=== PATIENT | female | born 1995 | race African-American/Black ===

== ENCOUNTER 2017-03-11 10:14 | Outpatient (CLI) | payer MEDICAID ==
[2017-03-11 11:25] LABS: APPEARANCE,URINE SLIGHTLY-CLOUDY; BILIRUBIN,URINE NEGATIVE (NEGATIVE); GLUCOSE, URINE NEGATIVE (NEGATIVE); KETONES,URINE NEGATIVE (NEGATIVE); LEUKOCYTE ESTERASE,URINE MODERATE (NEGATIVE); NITRITE,URINE NEGATIVE (NEGATIVE); PROTEIN,URINE NEGATIVE (NEGATIVE); URINE SPECIFIC GRAVITY 1.019; UROBILINOGEN,URINE NEGATIVE mg/dL (<2.0)
[2017-03-11 11:54] LABS: URINE BARBITURATES SCREEN NEGATIVE; URINE METHADONE SCREEN NEGATIVE; URINE OPIATES LOW NEGATIVE; URINE PHENCYCLIDINE SCREEN NEGATIVE
--- NOTE | 2017-03-11 12:27 | Non Stress Test Report ---
Non Stress Test Datetime Report Generated by CPN: 03/11/2017 12:27 DEMOGRAPHIC EGA NST: 38.5 INDICATION Indication for Study: Ordered by Provider Indication for Study (NST) Other: LC MONITORING Monitor Explained: Monitor Explained; Test Explained; Patient Verbalized Understanding Time on Monitor: 03/11/2017 10:38 Time off Monitor: 03/11/2017 12:20 NST Duration: 102 NST INTERVENTIONS NST Interventions: PO Hydration; Reposition Patient Physician Notified NST: Dr. Jc BABY A: [id number] BABY A Movement : Present Contraction Frequency : irregular FHR Baseline : 30-40 Accelerations : 15X15 Decelerations : None Variability : Moderate 6-25bpm NST Review: Meets Criteria for Reactive NST NST Review and Verified By : Nanette Bill RNC NST Results: Reactive NST REPORT Report Trigger: Send Report
== END 2017-03-11 12:30 | disposition home or self-care (01) ==
LOC: LC 10:14
PROVIDERS: ATTEND Obstetrics & Gynecology
PROC: 4A1HXCZ Monitoring of Products of Conception, Cardiac Rate, External Approach (ICD-10-PCS; principal; 2017-03-11)
DX: O47.1 False labor at or after 37 completed weeks of gestation (principal); Z3A.38 38 weeks gestation of pregnancy
CPT/HCPCS: 59025; 80307; 81001

== ENCOUNTER 2017-03-17 10:55 | Outpatient (CLI) | payer MEDICAID ==
[2017-03-17 11:49] LABS: APPEARANCE,URINE CLOUDY; BILIRUBIN,URINE NEGATIVE (NEGATIVE); GLUCOSE, URINE NEGATIVE (NEGATIVE); KETONES,URINE NEGATIVE (NEGATIVE); LEUKOCYTE ESTERASE,URINE LARGE (NEGATIVE); NITRITE,URINE NEGATIVE (NEGATIVE); PROTEIN,URINE 30 mg/dL (NEGATIVE); UROBILINOGEN,URINE NEGATIVE mg/dL (<2.0)
[2017-03-17 12:18] LABS: URINE BARBITURATES SCREEN NEGATIVE; URINE METHADONE SCREEN NEGATIVE; URINE OPIATES LOW NEGATIVE; URINE PHENCYCLIDINE SCREEN NEGATIVE
== END 2017-03-17 13:20 | disposition home or self-care (01) ==
LOC: LC 10:55
PROVIDERS: ATTEND Obstetrics & Gynecology
PROC: 4A1HXCZ Monitoring of Products of Conception, Cardiac Rate, External Approach (ICD-10-PCS; principal; 2017-03-17)
DX: O47.1 False labor at or after 37 completed weeks of gestation (principal); Z3A.39 39 weeks gestation of pregnancy
CPT/HCPCS: 59025; 80307; 81005

== ENCOUNTER 2017-03-26 10:45 | Inpatient (IN) | payer MEDICAID ==
--- NOTE | 2017-03-26 11:01 | Non Stress Test Report ---
Non Stress Test Datetime Report Generated by CPN: 03/26/2017 11:01 DEMOGRAPHIC EGA NST: 39.4 INDICATION Indication for Study: Other Indication for Study (NST) Other: lc VITAL SIGNS Temperature - NST: 98.5 Pulse - NST: 87 RESP - NST: 18 NBPSYS NST: 130 NBPDIA NST: 76 MONITORING Monitor Explained: Monitor Explained; Test Explained; Patient Verbalized Understanding Time on Monitor: 03/17/2017 11:15 Time off Monitor: 03/17/2017 11:45 NST Duration: 30 NST INTERVENTIONS NST Interventions: PO Hydration; Reposition Patient BABY A: [id number] BABY A Movement : Present Contraction Frequency : 4-7 FHR Baseline : 135 Accelerations : 15X15 Decelerations : None Variability : Moderate 6-25bpm NST Review: Meets Criteria for Reactive NST NST Review and Verified By : Nanette Khan RNC NST Results: Reactive NST REPORT Report Trigger: Send Report
[2017-03-26] MEDS ORDERED: LIDOCAINE 1% INJ-PF (10 MG/ML) 30 ML SDV ONE (11:49)
[2017-03-26] MEDS ORDERED: OXYTOCIN/NORMAL SALINE 20 UNIT/1,000 ML RTUINJ ONE (11:49)
[2017-03-26] MEDS ORDERED: PENICILLIN G-K 5 MILLION UNIT VIAL ONE ×2 (11:49→16:01)
[2017-03-26] MEDS ORDERED: MISOPROSTOL 0.2 MG TABLET ONE (11:49)
[2017-03-26 11:53] LABS: AMNISURE (ROM) POSITIVE (NEGATIVE)
[2017-03-26 11:54] LABS: APPEARANCE,URINE CLOUDY; BILIRUBIN,URINE NEGATIVE (NEGATIVE); GLUCOSE, URINE NEGATIVE (NEGATIVE); KETONES,URINE NEGATIVE (NEGATIVE); LEUKOCYTE ESTERASE,URINE SMALL (NEGATIVE); NITRITE,URINE NEGATIVE (NEGATIVE); PROTEIN,URINE 30 mg/dL (NEGATIVE); UROBILINOGEN,URINE NEGATIVE mg/dL (<2.0)
[2017-03-26 12:11] LABS: URINE BARBITURATES SCREEN NEGATIVE; URINE METHADONE SCREEN NEGATIVE; URINE OPIATES LOW NEGATIVE; URINE PHENCYCLIDINE SCREEN NEGATIVE
[2017-03-26 12:25] LABS: ABSOLUTE EOSINOPHILS # (AUTO) 0.1 10^3/uL (0.0-0.6); ABSOLUTE LYMPHOCYTES (AUTO) 2.2 10^3/uL (0.5-4.7); ABSOLUTE MONOCYTES (AUTO) 0.5 10^3/uL (0.1-1.4); ABSOLUTE NEUT (AUTO) 5.7 10^3/uL (1.7-8.2); BASOPHILS % (AUTO) 0.3 % (0-2); EOSINOPHILS % (AUTO) 0.6 % (0-6); HEMATOCRIT 35.3 % (36.0-47.0); HEMOGLOBIN 11.7 g/dL (12.0-15.5); HGB HCT DIFFERENCE -0.2; LYMPHOCYTES % (AUTO) 25.8 % (13-45); MEAN CORPUSCULAR HEMOGLOBIN 26.2 pg (27.0-33.4); MEAN CORPUSCULAR VOLUME 79 fl (80-97); MONOCYTES % (AUTO) 6.2 % (3-13); RED BLOOD COUNT 4.45 10^6/uL (3.72-5.28); RED CELL DISTRIBUTION WIDTH 14.6 % (11.5-14.0); SEGMENTED NEUTROPHILS % (AUTO) 67.1 % (42-78); WHITE BLOOD COUNT 8.5 10^3/uL (4.0-10.5)
[2017-03-26] MEDS ORDERED: OXYTOCIN/NORMAL SALINE 1,000 ML IV PRN ×2 (12:55→20:15)
[2017-03-26] MEDS ORDERED: RINGERS SOLUTION,LACTATED 300 ML IV ONE (12:55)
[2017-03-26] MEDS ORDERED: RINGERS SOLUTION,LACTATED 1,000 ML IV PRN (12:55)
[2017-03-26] MEDS ORDERED: NALBUPHINE HCL INJ 10 MG/1 ML AMPULE IV ONE (15:10)
[2017-03-26] MEDS ORDERED: NALBUPHINE HCL INJ 10 MG/1 ML AMPULE ONE (15:15)
--- NOTE | 2017-03-26 17:06 | L&D Progress Notes ---
PROGRESS NOTES Datetime Report Generated by CPN: 03/26/2017 17:05 PROGRESS NOTE Impression: Reassuring Heart Rate Procedures: Sterile Vag Exam Plan: Continue Present Management Plan Other: pt may havev epidural Vital Signs : Reviewed; Within Normal Limits Comment: pt uncomfortable, desires epidural Pitocin @ 18 mu s/p dose #2 pcn Pt may have epidural VAGINAL EXAM Dilatation: 5 Dilatation: 3 Effacement: 70 Effacement: 80 Station: -2 Contractions: 2-3 Contractions: irregular MEMBRANES Membranes: Ruptured Membranes: Ruptured Amniotic Fluid Color: Clear Amniotic Fluid Color: Clear FETUS A FHR - Baseline: 125 Monitoring: External US Variability: Moderate 6-25bpm Accelerations: Absent FHR Category: Category I Presentation: Vertex SIGNATURE SIGNATURE: [id number] SIGNATURE: [id number] SIGNATURE: [id number] Assignment: Velma Munguia MD Signature: with User ID: [email or web address] : with User ID: [email or web address]
[2017-03-26] MEDS ORDERED: PHENYLEPHRINE HCL INJ/PF 10 MG/1 ML SDV ONE (17:17)
[2017-03-26] MEDS ORDERED: FENTANYL CITRATE INJ/PF 100 MCG/2 ML AMPUL ONE (17:17)
[2017-03-26] MEDS ORDERED: BUPIVACAINE HCL 0.25 % INJ/PF (2.5 MG/1 ML) 30 ML VIAL ONE (17:17)
[2017-03-26] MEDS ORDERED: FENTANYL/BUPIVACAINE/NS/PF 200 MCG/100 ML RTUINJ EPI ONE (17:17)
[2017-03-26] MEDS ORDERED: EPHEDRINE SULFATE INJ 50 MG/1 ML AMPULE ONE (17:17)
[2017-03-26] MEDS ORDERED: DIPHENHYDRAMINE HCL 25 MG CAPSULE PO PRN (20:15)
[2017-03-26] MEDS ORDERED: PROMETHAZINE HCL 25 MG SUPP.RECT PR PRN (20:15)
[2017-03-26] MEDS ORDERED: PSEUDOEPHEDRINE HCL 30 MG TABLET PO PRN (20:15)
[2017-03-26] MEDS ORDERED: GLYCERIN/WITCH HAZEL LEAF 1 EACH MED..PAD TP PRN (20:15)
[2017-03-26] MEDS ORDERED: NA PHOS,M-B/NA PHOS,DI-BA (ADULT) 133 ML ENEMA PR PRN (20:15)
[2017-03-26] MEDS ORDERED: MEASLES,MUMPS&RUBELLA VACC/PF 0.5 ML VIAL SUBCUT PRN (20:15)
[2017-03-26] MEDS ORDERED: DIPH/PERTUSS(ACELL)/TETANUS VAC/PF 0.5 ML SYR (>=10YO) IM PRN (20:15)
[2017-03-26] MEDS ORDERED: DIBUCAINE 1% OINTMENT 28 GM TP PRN (20:15)
[2017-03-26] MEDS ORDERED: PROMETHAZINE HCL 25 MG TABLET PO PRN (20:15)
[2017-03-26] MEDS ORDERED: PROMETHAZINE HCL INJ 25 MG/1 ML VIAL IV PRN (20:15)
[2017-03-26] MEDS ORDERED: ACETAMINOPHEN WITH CODEINE #3 TABLET PO PRN ×2 (20:15)
[2017-03-26] MEDS ORDERED: MAGNESIUM HYDROXIDE SUSP 30 ML UDCUP PO PRN (20:15)
[2017-03-26] MEDS ORDERED: ZOLPIDEM TARTRATE 5 MG TABLET PO PRN (20:15)
[2017-03-26] MEDS ORDERED: ACETAMINOPHEN 650 MG SUPP.RECT PR PRN (20:15)
[2017-03-26] MEDS ORDERED: BENZOCAINE/MENTHOL AEROSOL SPRAY 56 ML TOP PRN (20:15)
[2017-03-26] MEDS ORDERED: IBUPROFEN 800 MG TABLET ONE (20:46)
--- NOTE | 2017-03-26 22:38 | Admission Physical ---
Datetime Report Generated by CPN: 03/26/2017 22:37 CURRENT ADMISSION Hx Assessment: The History has been Reviewed and is Current Chief Complaint: Uterine Contractions; Suspected Ruptured Membranes Indication for Induction: Not Applicable Admit Plan: Initiate Labor Augmentation Protocol ALLERGIES Medication Allergies: No Medication Allergies: No Known Allergies (03/26/2017) Medication Allergies: No Known Allergies (03/17/2017) Medication Allergies: No Known Allergies (06/25/2011) Latex: No Latex Allergies Food Allergies: pickles Environmental Allergies: no OBSTETRICAL HISTORY EDC: 03/20/2017 00:00 : 2 Para: 1 Term: 1 : 0 SAB: 0 IAB: 0 Ectopic: 0 Livin Cesareans: 1 VBACs: 0 Multiple Births: 0 Gestational Diabetes: No Rh Sensitization: No Incompetent Cervix: No MARIALUISA: No Infertility: No ART Treatment: No Uterine Anomaly: No IUGR: No Hx Previous C/S: No Macrosomia: No Hx Loss/Stillborn: No PIH: No Hx : No Placenta Previa/Abruption: No Depression/PP Depression: No PTL/PROM: No Post Hemorrhage: No Current Procedures: Ultrasound; NST Obstetrical History Comments: G1: 05/2011 G2: current SEE RECORDS Alcohol: No Marijuana : Yes Marijuana Frequency: Occasional Previous Treatment: None Marijuana Comments: positive during this , pt states she had a cookie that she didn't know had marijuana in it Cocaine: No Other Illicit Drugs: No Cigarettes: Never Smoker. 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 Surgery: No Heart Disease: No Hosp/Surgery: No Autoimmune Disorder: No Anesthetic Complications: No Kidney Disease: No Abnormal Pap Smear: No Neuro/Epilepsy: No Psychiatric Disorders: No Other Medical Diseases: No Hepatitis/Liver Disease: No Significant Family History: No Varicosities/Phlebitis: No Trauma/Violence : No Thyroid Dysfunction: No INFECTIOUS HISTORY Gonorrhea: No Genital Herpes: No Chlamydia: Yes Tuberculosis: No Syphilis: No Hepatitis: No HIV/AIDS Exposure: No Rash or Viral Illness: No HPV: No PHYSICAL EXAM General: Normal HEENT: Normal Neurologic: Normal Thyroid: Normal Heart: Normal Lungs: Normal Breast: Normal Back: Normal Abdomen: Normal Genitourinary Exam: Normal Extremities: Normal DTRs: Normal Pelvic Type: Adequate Physical Exam Comments: pelvis proven to 7 lbs 7 oz VAGINAL EXAM Dilatation: 5 Dilatation: 3 Effacement: 70 Effacement: 80 Station: -2 Contraction Comments: 2-3 Contraction Comments: irregular MEMBRANES Membranes: Ruptured Membranes: Ruptured Amniotic Fluid Color: Clear Amniotic Fluid Color: Clear FETUS A EGA: 40.6 Monitoring: External US FHR- Baseline: 140 Variability: Moderate 6-25bpm Accelerations: 15X15 Presentation: Vertex Admit Comment: SROM, 0300 clear, having irregular ctx, coping well now, but desires epidural. Late care, transfer from [facility] Admit to L _ D + CT at 36w, no CHARLES complete, pending GBS +, tx with PCN Pt may have epidural Pitocin for labor augmentation See record for complete medical/surgical/ hx. PLANS FOR LABOR AND DELIVERY Labor and Delivery: None Pain Management: Epidural Feeding Preference: Formula Benefit of Breast Feed Discussed: Yes Circumcision: No INFORMED CONSENT Assignment: Velma Munguia MD Signature: with User ID: [email or web address] : with User ID: [email or web address]
[2017-03-27] MEDS: IBUPROFEN 800 MG TABLET PO SCH ×4 (02:05→21:58)
[2017-03-27] MEDS: FAMOTIDINE 20 MG TABLET PO SCH ×3 (02:05→21:58)
[2017-03-27 08:37] LABS: HEMATOCRIT 34.3 % (36.0-47.0); HEMOGLOBIN 11.1 g/dL (12.0-15.5); MEAN CORPUSCULAR HGB CONC 32.4 g/dL (32.0-36.0); MEAN CORPUSCULAR VOLUME 80 fl (80-97); RED BLOOD COUNT 4.29 10^6/uL (3.72-5.28); RED CELL DISTRIBUTION WIDTH 14.7 % (11.5-14.0); WHITE BLOOD COUNT 11.2 10^3/uL (4.0-10.5)
[2017-03-27] MEDS: PRENATAL VITAMIN W-O CA NO5/FE FUMARATE/FA CAPSULE PO SCH (09:58)
[2017-03-27] MEDS: SENNOSIDES/DOCUSATE 8.6-50 MG 1 EACH TABLET PO SCH (09:58)
[2017-03-27] MEDS: FERROUS SULFATE 325 MG TABLET PO SCH ×2 (09:59→17:45)
[2017-03-27] MEDS: DOCUSATE SODIUM 100 MG CAPSULE PO SCH ×2 (09:59→17:45)
--- NOTE | 2017-03-27 13:09 | PDOC PROGRESS REPORT ---
Subjective-OB Subjective: Post Delivery Day: 22 year old. Denies any needs at this time s/p vaginal delivery pt sitting up bonding well with family ff@u-1 mild lochia denies clots anticipate d/c in AM Physical Exam (OB) Vital Signs: Temp Pulse Resp BP Pulse Ox 97.5 F 65 16 112/48 L 100 03/27/17 07:55 03/27/17 07:55 03/27/17 07:55 03/27/17 07:55 03/27/17 07:55 Intake & Output 03/26/17 03/27/17 03/28/17 06:59 06:59 06:59 Intake Total 400 Balance 400 Weight 141.2 kg - Lochia Lochia Amount: Small 10-25 ml Lochia Color: Rubra/Red - Abdomen Description: Soft Hernia Present: No Fundal Description: Firm Fundal Height: u/u - u/2 Objective-Diagnostic Laboratory: 03/27/17 07:25 03/26/17 03/27/17 11:52 07:25 WBC 11.2 H RBC 4.29 Hgb 11.1 L Hct 34.3 L MCV 80 MCH 26.0 L MCHC 32.4 RDW 14.7 H Plt Count 190 Blood Type B POSITIVE Antibody Screen NEGATIVE
[2017-03-28] MEDS: IBUPROFEN 800 MG TABLET PO SCH ×2 (05:37→13:03)
[2017-03-28 08:21] VITALS: BP 129/62
[2017-03-28] MEDS: FAMOTIDINE 20 MG TABLET PO SCH (09:19)
[2017-03-28] MEDS: FERROUS SULFATE 325 MG TABLET PO SCH (09:19)
[2017-03-28] MEDS: SENNOSIDES/DOCUSATE 8.6-50 MG 1 EACH TABLET PO SCH (09:20)
[2017-03-28] MEDS: PRENATAL VITAMIN W-O CA NO5/FE FUMARATE/FA CAPSULE PO SCH (09:21)
[2017-03-28] MEDS: DOCUSATE SODIUM 100 MG CAPSULE PO SCH (09:21)
--- NOTE | 2017-03-28 09:31 | PDOC PROGRESS REPORT ---
Subjective-OB Subjective: Post Delivery Day: 22 year old. Denies any needs at this time Doing well, no c/o, ready to go home, ambulating, scant lochia, diet taken well Physical Exam (OB) Vital Signs: Temp Pulse Resp BP Pulse Ox 98.3 F 70 15 129/62 H 100 03/28/17 07:26 03/28/17 07:26 03/28/17 07:26 03/28/17 07:26 03/28/17 07:26 Intake & Output 03/27/17 03/28/17 03/29/17 06:59 06:59 06:59 Intake Total 400 Balance 400 Weight 141.2 kg - Lochia Lochia Amount: Scant < 10 ml Lochia Color: Rubra/Red - Abdomen Description: Tender, Soft, Round Hernia Present: No Fundal Description: Firm, Midline Fundal Height: u/u - u/2 Objective-Diagnostic Laboratory: 03/27/17 07:25 Assessment and Plan(PN) - Assessment and Plan (1) Marijuana abuse Is this a current diagnosis for this admission?: Yes (2) Vaginal delivery Is this a current diagnosis for this admission?: Yes - Time Spent with Patient Time with patient: Less than 15 minutes Medications reviewed and adjusted accordingly: Yes - Disposition Anticipated Discharge: Home Within: Other - d/c today
--- NOTE | 2017-03-28 09:35 | PDOC DISCHARGE SUMMARY ---
Final Diagnosis Discharge Date: 03/28/17 - Final Diagnosis (1) Marijuana abuse Is this a current diagnosis for this admission?: Yes (2) Vaginal delivery Is this a current diagnosis for this admission?: Yes Discharge Data - Discharge Medication Home Medications: Pnv W-O Ca No5/Fe Fumarate/FA [-U Multiple Vitamin Capsule] 1 cap PO DAILY #0 capsule 03/28/17 Gestational Age: 40.6 Reason(s) for Admission: PROM - pitocin augmenttion, Group B Strep Positive Procedures: NST, Ultrasound Intrapartum Procedure(s): Spontaneous Vaginal Delivery Complication(s): Laceration-Periurethral Laceration-Degree: 1st - Data Baby 1 Male at 1 minute: 8 at 5 minutes: 9 Weight: 2.92 kg Home with Mother: Yes Complications: No - Diagnosis Test Laboratory: Temp Pulse Resp BP Pulse Ox 98.3 F 70 15 129/62 H 100 03/28/17 07:26 03/28/17 07:26 03/28/17 07:26 03/28/17 07:26 03/28/17 07:26 03/26/17 03/26/17 03/27/17 11:12 11:51 07:25 RBC 4.45 4.29 Hgb 11.7 L 11.1 L Hct 35.3 L 34.3 L Urine Opiates Screen NEGATIVE - Discharge information/Instructions Discharge Activity: Activity As Tolerated, No Lifting Over 10 Pounds, No Lifting /Push/Pulling, Pelvic Rest Discharge Diet: As Tolerated, Regular Disposition: HOME, SELF-CARE Follow up with: [facility] in: 4, Weeks
== END 2017-03-28 13:10 | disposition home or self-care (01) | DRG 775 ==
LOC: LC 10:45 → LR 11:50 → 2S 22:04
PROVIDERS: ADMIT Student in an Organized Health Care Education/Training Program; ATTEND Student in an Organized Health Care Education/Training Program
PROC: 10E0XZZ Delivery of Products of Conception, External Approach (ICD-10-PCS; principal; 2017-03-26)
PROC: 0HQ9XZZ Repair Perineum Skin, External Approach (ICD-10-PCS; 2017-03-26)
DX: O70.0 First degree perineal laceration during delivery (principal); Z3A.40 40 weeks gestation of pregnancy; Z37.0 Single live birth; O99.820 Streptococcus B carrier state complicating pregnancy; F12.10 Cannabis abuse, uncomplicated
CPT/HCPCS: 36415; 80307; 81005; 84112; 85025; 85027; 86592; 86850; 86900; 86901; 94760; G0480; J2300; J2370; J2540; J2590; J3010; J3490

== ENCOUNTER 2017-04-11 00:02 | Emergency (ER) | payer MEDICAID ==
[2017-04-11 00:09] VITALS: BP 127/72
== END 2017-04-11 02:39 | disposition left against medical advice (07) ==
LOC: ER 00:02
DX: Z53.21 Procedure and treatment not carried out due to patient leaving prior to being seen by health care provider (principal)

== ENCOUNTER 2020-08-13 14:16 | Emergency (ER) | payer MEDICAID ==
[2020-08-13 14:29] VITALS: BP 110/32
[2020-08-13] MEDS ORDERED: DIPHENHYDRAMINE HCL 50 MG/ML VIAL IM ONE (14:41)
[2020-08-13] MEDS ORDERED: DEXAMETHASONE SOD PHOS INJ 10 MG/1 ML VIAL IM ONE (14:41)
[2020-08-13] MEDS ORDERED: FAMOTIDINE 20 MG TABLET PO ONE (14:41)
--- NOTE | 2020-08-13 14:43 | ER Document Report ---
HPI - HPI Time Seen by Provider: 08/13/20 14:38 Notes: 25-year-old female patient presents the emergency department chief complaint of hives to her arms and now a few on her face. Patient reports history of this happening about 5 years ago. Patient does not know what allergen she may have. She states that hives on her arm started about 3 days ago. Today she noticed 2 spots on her face that she decided to come get treated. She has not taken any medications for symptoms. She states last time this happened gave her Benadryl, Decadron and Pepcid which resolved all of her symptoms. - ROS Systems Reviewed and Negative: Yes All other systems reviewed and negative - DERM Skin Problems: Rash - scattered occasional hive, R upper ext/face Past Medical History - General Information source: Patient - Social History Smoking Status: Never Smoker Drug Abuse: Marijuana Family History: None - Medical History Medical History: Negative Renal/ Medical History: Denies: Hx Peritoneal Dialysis - Immunizations Immunizations up to date: Yes Hx Diphtheria, Pertussis, Tetanus Vaccination: Yes Vertical Provider Document - CONSTITUTIONAL Notes: PHYSICAL EXAMINATION: GENERAL: Well-appearing, well-nourished and in no acute distress. HEAD: Atraumatic, normocephalic. EYES: Pupils equal round extraocular movements intact, conjunctiva are normal. ENT: Nares patent, swallowing without difficulty, no obvious upper airway obstruction. NECK: Normal range of motion LUNGS: No respiratory distress, lung sounds clear and equal bilaterally. Musculoskeletal: Normal range of motion NEUROLOGICAL: Normal speech, normal gait. PSYCH: Normal mood, normal affect. SKIN: Scattered and occasional hives to right upper extremity, 2 hives noted to face. - INFECTION CONTROL TRAVEL OUTSIDE OF THE [place] IN LAST 30 DAYS: No Course - Re-evaluation Re-evalutation: Patient treated with IM Decadron, IM Benadryl and p.o. Pepcid. Likely contact dermatitis. Patient has had similar episode in the past. She has no airway compromise, patient speaking in full complete sentences without difficulty. Patient will be discharged home on Pepcid and Benadryl. She will follow-up with primary care if symptoms persist. Return if worsening. - Vital Signs Vital signs: Temp Pulse Resp BP Pulse Ox 98.7 F 87 18 110/32 L 99 08/13/20 14:28 08/13/20 14:28 08/13/20 14:28 08/13/20 14:28 08/13/20 14:28 Discharge - Discharge Clinical Impression: Hives Condition: Stable Disposition: HOME, SELF-CARE Additional Instructions: You were given an injection of Decadron, this will last in your system for approximately 3 to 4 days. Please take Benadryl 50 mg every 6 hours to help with your itching. Take the Pepcid as prescribed. If you have another allergic reaction similar to this one you may want to consider having allergy testing done by your primary care provider. Return if any new or worsening symptoms such as difficulty swallowing or difficulty breathing. Prescriptions: Famotidine [Pepcid 20 mg Tablet] 20 mg PO BID #28 tablet Forms: Return to Work
[2020-08-13] MEDS ORDERED: DEXAMETHASONE SOD PHOSPHATE INJ 4 MG/1 ML VIAL IM ONE (15:30)
== END 2020-08-13 15:35 | disposition home or self-care (01) ==
LOC: ER 14:16
DX: F12.10 Cannabis abuse, uncomplicated (principal)
CPT/HCPCS: 99284; 96372; J3490; J1100; J1200

== ENCOUNTER 2020-10-28 15:24 | Emergency (ER) | payer SELFPAY ==
[2020-10-28 15:29] VITALS: BP 144/68
--- NOTE | 2020-10-28 15:45 | ER Document Report ---
ED ENT - General Chief Complaint: Nasal Congestion Stated Complaint: SINUS PRESSURE Time Seen by Provider: 10/28/20 15:36 Primary Care Provider: [facility] [Provider Group] - Follow up as needed Mode of Arrival: Ambulatory Information source: Patient TRAVEL OUTSIDE OF THE [place] IN LAST 30 DAYS: No - HPI Patient complains to provider of: Nose problem Notes: Patient here with frontal sinus pressure, nasal congestion and pain. Patient states that her symptoms have been going on for about 2 weeks and not getting better. She occasionally wakes up in the night with frontal headache. She denies any fever. No injury. She denies any chest pain or shortness of breath. No sore throat. No difficulty breathing or swallowing. No blurred or loss of vision. No numbness, tingling, weakness. No abdominal pain. No nausea, vomiting, diarrhea. Pain is intermittent, moderate, improves with [id number]-[id number] sinus medication, better at night when she sleeping. No other complaints. - Related Data Allergies/Adverse Reactions: No Known Allergies Allergy (Verified 10/28/20 15:32) Past Medical History - Social History Smoking Status: Former Smoker Chew tobacco use (# tins/day): No Frequency of alcohol use: Occasional Drug Abuse: None Family History: None Renal/ Medical History: Denies: Hx Peritoneal Dialysis - Immunizations Immunizations up to date: Yes Hx Diphtheria, Pertussis, Tetanus Vaccination: Yes Review of Systems - Review of Systems -: Yes All other systems reviewed and negative Physical Exam - Vital signs Vitals: Temp Pulse Resp BP Pulse Ox 98.1 F 72 16 144/68 H 99 10/28/20 15:27 10/28/20 15:27 10/28/20 15:27 10/28/20 15:27 10/28/20 15:27 - Notes Notes: GENERAL: alert, cooperative, nontoxic, no distress. HEAD: normocephalic, atraumatic EYES: conjunctiva pink without discharge, no external redness or swelling. EARS: no external swelling, no external redness, no mastoid redness, swelling, tenderness. Ear canals are clear without swelling or drainage. TMs pearly dupree, no redness, no bulging, normal landmarks, no perforation. NOSE: atraumatic, no external swelling. clear rhinorrhea noted. Nasal turbinates red and inflamed. Mild tenderness to percussion to the frontal sinuses. MOUTH/THROAT: mucous membranes moist and pink, posterior pharynx without erythema, swelling, exudate. No trismus or drooling. Voice is normal, no stridor. NECK: soft, supple, full range of motion, no meningismus. CHEST: no distress, lungs clear and equal throughout. No wheezing, rales, rhonchi. CARDIAC: regular rate and rhythm, no murmur EXTREMITIES: full range of motion of all extremities. No redness, no swelling. NEURO: alert and oriented A&O3, no focal deficits, full range of motion of all extremities. PYSCH: appropriate mood, affect. Patient is cooperative. SKIN: pink, warm, dry, no rash. Course - Re-evaluation Re-evalutation: 10/28/20 15:51 Patient nontoxic-appearing with stable vitals. Here with complaints of nasal congestion, sinus congestion for the last 2 weeks. No fever. Symptoms have been getting worse over the last few days. No fevers. She has a nonfocal neuro exam. She does have frontal sinus tenderness to percussion with red, swollen inflamed nasal turbinates. Symptoms of been present for 2 weeks, this is consistent with acute sinusitis. Patient will be discharged home with a prescription for amoxicillin and Flonase. She instructed continue taking her kynm-dnj-llioezy sinus medication. Drink plenty fluids. Follow-up if not better in the next 5 to 7 days, sooner for worsening symptoms, high fever, persistent vomiting, numbness, tingling, weakness, any further concerns. The patient's emergency department workup and current diagnosis were explained to the patient and or family. Follow-up instructions were provided. Medications if prescribed were discussed. Instructions for when to return to the emergency department including specific worrisome symptoms were discussed with the patient and/or family. - Vital Signs Vital signs: Temp Pulse Resp BP Pulse Ox 98.1 F 72 16 144/68 H 99 10/28/20 15:27 10/28/20 15:27 10/28/20 15:27 10/28/20 15:27 10/28/20 15:27 - Laboratory Results Critical Laboratory Results Reviewed: No Critical Results - Radiology Results Critical Radiology Results Reviewed: No Critical Results Discharge - Discharge Clinical Impression: Sinusitis Qualifiers: Sinusitis location: frontal Chronicity: acute Recurrence: non-recurrent Qualif ied Code(s): J01.10 - Acute frontal sinusitis, unspecified Condition: Stable Disposition: HOME, SELF-CARE Instructions: Sinusitis ([facility]) Additional Instructions: Take medication as prescribed. Continue taking your sinus medicine. Drink plenty of fluids. Follow-up if not better in the next 5 to 7 days, sooner for worsening symptoms, high fever, persistent vomiting, numbness, tingling, weakness, any further concerns. Prescriptions: Amoxicillin 875 mg PO BID #20 tablet Fluticasone Propionate [Flonase Nasal [place] 50 Mcg/[place] 16 gm] 1 spray NASL Q12 #1 inhaler Forms: Return to Work Referrals: [facility] [Provider Group] - Follow up as needed
== END 2020-10-28 15:48 | disposition home or self-care (01) ==
LOC: ER 15:24
DX: J01.10 Acute frontal sinusitis, unspecified (principal); R09.81 Nasal congestion
CPT/HCPCS: 99283